=== PATIENT | female | born 1960 | race Hispanic/Latino ===

== ENCOUNTER → 2024-06-03 | Outpatient (CLI) | payer OTHER ==
--- NOTE | 2024-06-03 19:26 | HMCIMG ---
WRIST 2VWS RT HISTORY: Injury and arthritis COMPARISON: None TECHNIQUE: 2 images of right wrist were obtained. FINDINGS: Radiocarpal joint space narrowing is seen. Deformity is seen of the distal radius. There is no acute displaced fracture or dislocation. Degenerative changes are seen. IMPRESSION: 1. Findings as described above.
--- NOTE | 2024-06-03 19:32 | HMCIMG ---
KNEE 3VWS RT HISTORY: Injury, arthritis COMPARISON: None TECHNIQUE: 2 images of right knee were obtained. FINDINGS: There is no acute displaced fracture or dislocation. Degenerative changes are seen. IMPRESSION: 1. Findings as described above.
--- NOTE | 2024-06-03 19:33 | HMCIMG ---
FOOT LIMITED 2VWS RT HISTORY: Injury COMPARISON: None TECHNIQUE: 2 images of right foot were obtained. FINDINGS: Interphalangeal joint space narrowing are seen. There is no acute displaced fracture or dislocation. Degenerative changes are seen. IMPRESSION: 1. Findings as described above.
== END | disposition home or self-care (01) ==
LOC: RAH 15:36
PROVIDERS: ATTEND Internal Medicine
DX: S69.91XA Unspecified injury of right wrist, hand and finger(s), initial encounter (principal); M19.031 Primary osteoarthritis, right wrist; M19.071 Primary osteoarthritis, right ankle and foot; M17.11 Unilateral primary osteoarthritis, right knee; M21.831 Other specified acquired deformities of right forearm; X58.XXXA Exposure to other specified factors, initial encounter; Y93.89 Activity, other specified; Y92.89 Other specified places as the place of occurrence of the external cause; Y99.8 Other external cause status
CPT/HCPCS: 73100; 73562; 73620